=== PATIENT | female | born 1975 | race African-American/Black ===

== ENCOUNTER 2023-02-28 18:20 | Inpatient (IN) | payer MEDICAID, OTHER ==
[~2023-02-28] VITALS: Ht 170.2 cm; Wt 115.7 kg
[~2023-02-28 18:20] MED LIST: A; ALOG1TAB8 MT; AMLO-375 PO; DOCU250C69 PO; FERR325T6 PO; LOSA1TAB40 PO; METF-414 PO
[2023-02-28 19:05] LABS: CLARITY URINE CLOUDY (CLEAR); COLOR URINE YELLOW (YELLOW); GLUCOSE URINE NEGATIVE (NEGATIVE); KETONES URINE NEGATIVE (NEGATIVE); LEUKOCYTE ESTERASE URINE NEGATIVE (NEGATIVE); NITRITE URINE NEGATIVE (NEGATIVE); OCCULT BLOOD URINE 3+ (NEGATIVE); PROTEIN URINE NEGATIVE (NEGATIVE); UROBILINOGEN URINE 0.2 E.U./dL (0.2-1.0)
[2023-02-28 19:08] LABS: RBC URINE TNTC /hpf (0-2); YEAST URINE NONE SEEN
[2023-02-28 19:29] LABS: BACTERIA URINE 1+; SQUAMOUS EPITHELIAL CELL URINE 1+ /lpf (RARE/1+); WBC URINE 0-2 /hpf (0-2)
[2023-02-28 19:36] LABS: BASOPHILS % 1.2 % (0.0-2.0); DIFFERENTIAL COMMENT 0; EOSINOPHILS % 1.6 % (0.0-5.0); HEMATOCRIT. 29.1 % (36.0-48.0); HEMOGLOBIN. 9.1 g/dL (12.0-16.0); LYMPHOCYTES % 32.5 % (20.0-50.0); MEAN CORPUSCULAR HEMOGLOBIN 24.9 pg (28.0-32.0); MEAN CORPUSCULAR HGB CONC 31.3 g/dL (31.0-37.0); MEAN CORPUSCULAR VOLUME 79.6 fL (81.0-99.0); MEAN PLATELET VOLUME 9.4 fl (7.4-10.4); MONOCYTES % 8.8 % (2.0-8.0); NEUTROPHILS % 55.9 % (40.0-76.0); PLATELET 289 x1000/uL (130-400); RED BLOOD CELL COUNT 3.66 mill/uL (4.2-5.4); RED CELL DISTRIBUTION WIDTH 16.4 % (11.6-14.6); WHITE BLOOD COUNT 8.6 x1000/uL (4.5-11.0)
[2023-02-28 19:41] LABS: CHLORIDE 104 mEq/L (98-107); INDEX HEMOLYSI 1 (1-3); INDEX ICTERIC 1 (1-4); INDEX LIPEMIC 1 (1-3); POTASSIUM 3.7 mEq/L (3.5-5.1); SODIUM 136 mEq/L (136-145)
[2023-02-28 19:46] LABS: ALBUMIN 3.5 g/dL (3.4-5.0); CALCIUM 9.1 mg/dL (8.5-10.1); CARBON DIOXIDE 26 mEq/L (21-32); GLUCOSE 149 mg/dL (70-105); UREA NITROGEN BLOOD 10 mg/dL (7-21)
[2023-02-28 19:52] LABS: ALANINE AMINOTRANSFERASE 17 IU/L (13-61); ASPARTATE AMINOTRANSFERASE 9 IU/L (15-37); BILIRUBIN TOTAL 0.1 mg/dL (0.1-1.0); CREATININE 0.5 mg/dL (0.6-1.3); PROTEIN TOTAL 7.8 g/dL (6.0-8.3)
[2023-02-28] MEDS ORDERED: ACETAMINOPHEN 325MG TABLET PO ONE (22:30)
[2023-02-28] MEDS ORDERED: SODIUM CHLORIDE 0.9% 1,000 ML IV ONE (22:30)
[2023-03-01] MEDS ORDERED: MEDR5TAB MT (01:15)
[2023-03-01] MEDS ORDERED: SODIUM CHLORIDE 0.9% 500 ML IV ONE (02:45)
[2023-03-01 04:04] LABS: HEMATOCRIT 26.1 % (36.0-48.0); HEMOGLOBIN 8.1 g/dL (12.0-16.0)
[2023-03-01 10:00] VITALS: BP 130/75; PULSE 106; RESP 18; TEMP 97.1
[2023-03-01] MEDS ORDERED: METF-874 PO (11:02)
[2023-03-01] MEDS ORDERED: ACETAMINOPHEN 325MG TABLET PO PRN (11:30)
[2023-03-01] MEDS ORDERED: ONDANSETRON HCL 4MG/2ML INJ IV PRN (11:30)
[2023-03-01 12:00] VITALS: BP 108/65; PULSE 110; RESP 20; TEMP 97.4
[2023-03-01 13:02] VITALS: BP 129/83; PULSE 106; TEMP 97.7; O2SAT 98
[2023-03-01 16:04] VITALS: BP 129/83; PULSE 106; RESP 18; TEMP 97.7
[2023-03-01 18:36] LABS: HEMOGLOBIN 9.5 g/dL (12.0-16.0)
== END 2023-03-01 21:51 | disposition home or self-care (01) | DRG 532 ==
LOC: ER 18:20 → 7WST 03-01 05:05
PROVIDERS: ADMIT Internal Medicine; ATTEND Internal Medicine
PROC: 30233N1 Transfusion of Nonautologous Red Blood Cells into Peripheral Vein, Percutaneous Approach (ICD-10-PCS; principal; 2023-03-01)
DX: N92.0 Excessive and frequent menstruation with regular cycle (principal); D25.9 Leiomyoma of uterus, unspecified; D64.9 Anemia, unspecified; E11.9 Type 2 diabetes mellitus without complications; E66.9 Obesity, unspecified; I10 Essential (primary) hypertension; N93.8 Other specified abnormal uterine and vaginal bleeding; Z98.891 History of uterine scar from previous surgery; Z68.39 Body mass index [BMI] 39.0-39.9, adult
CPT/HCPCS: 36415; 76830; 76856; 80053; 81003; 83036; 85014; 85018; 85025; 86850; 86900; 86920; 93976; 99285; J7030; J7040; P9016

== ENCOUNTER 2023-03-20 20:51 | Emergency (ER) | payer OTHER ==
[~2023-03-20] VITALS: Ht 175.3 cm; Wt 115.0 kg
[~2023-03-20 20:51] MED LIST changes: -ALOG1TAB8 MT; +MEDR5TAB MT; -METF-414 PO; +METF-874 PO
[2023-03-20 20:52] VITALS: O2SAT 99
[2023-03-20 22:52] LABS: BASOPHILS % 0.5 % (0.0-2.0); EOSINOPHILS % 1.7 % (0.0-5.0); HEMATOCRIT. 27.7 % (36.0-48.0); HEMOGLOBIN. 8.5 g/dL (12.0-16.0); LYMPHOCYTES % 13.1 % (20.0-50.0); MEAN CORPUSCULAR HEMOGLOBIN 25.4 pg (28.0-32.0); MEAN CORPUSCULAR HGB CONC 30.6 g/dL (31.0-37.0); MEAN CORPUSCULAR VOLUME 82.9 fL (81.0-99.0); MEAN PLATELET VOLUME 7.6 fl (7.4-10.4); MONOCYTES % 5.2 % (2.0-8.0); NEUTROPHILS % 79.5 % (40.0-76.0); PLATELET 274 x1000/uL (130-400); RED BLOOD CELL COUNT 3.34 mill/uL (4.2-5.4); RED CELL DISTRIBUTION WIDTH 18.4 % (11.6-14.6); WHITE BLOOD COUNT 9.8 x1000/uL (4.5-11.0)
[2023-03-20 23:01] LABS: CHLORIDE 107 mEq/L (98-107); INDEX HEMOLYSI 1 (1-3); INDEX ICTERIC 1 (1-4); INDEX LIPEMIC 1 (1-3); POTASSIUM 3.7 mEq/L (3.5-5.1); SODIUM 137 mEq/L (136-145)
[2023-03-20 23:16] LABS: HCG SCREEN NEGATIVE
[2023-03-20 23:28] LABS: ALANINE AMINOTRANSFERASE 14 IU/L (13-61); ALBUMIN 3.4 g/dL (3.4-5.0); ASPARTATE AMINOTRANSFERASE 6 IU/L (15-37); BILIRUBIN TOTAL 0.2 mg/dL (0.1-1.0); CALCIUM 8.7 mg/dL (8.5-10.1); CARBON DIOXIDE 25 mEq/L (21-32); CREATININE 0.8 mg/dL (0.6-1.3); GLUCOSE 214 mg/dL (70-105); PROTEIN TOTAL 7.9 g/dL (6.0-8.3); UREA NITROGEN BLOOD 8 mg/dL (7-21)
[2023-03-21] MEDS ORDERED: KETOROLAC 30MG/ML VIAL IV ONE (00:45)
[2023-03-21] MEDS ORDERED: MORPHINE SULFATE 2 MG/ML CPJ (NOT FOR IM USE) IV ONE (00:45)
[2023-03-21 02:02] LABS: PROTHROMBIN TIME 10.6 sec (9.6-11.0)
[2023-03-21] MEDS ORDERED: DOCUSATE SODIUM 100MG CAPSULE PO PRN (08:15)
[2023-03-21] MEDS ORDERED: ACETAMINOPHEN 325MG TABLET PO PRN ×2 (08:15)
[2023-03-21] MEDS ORDERED: CLONIDINE 0.1MG TABLET PO PRN (08:15)
[2023-03-21] MEDS ORDERED: MORPHINE SULFATE 2 MG/ML CPJ (NOT FOR IM USE) IV NR (08:15)
[2023-03-21] MEDS ORDERED: NALOXONE HCL 0.4MG/ML VIAL IV PRN (08:15)
[2023-03-21] MEDS ORDERED: ONDANSETRON HCL 4MG/2ML INJ IV PRN (08:15)
[2023-03-21] MEDS ORDERED: KETOROLAC 30MG/ML VIAL IV NR (08:15)
[2023-03-21] MEDS ORDERED: IPRATROPIUM/ALBUTEROL 0.5-3(2.5)MG/3ML NEB HHN PRN (08:15)
[2023-03-21] MEDS ORDERED: LORAZEPAM 0.5MG TABLET PO PRN (08:15)
[2023-03-21] MEDS ORDERED: HYDROCODONE/ACETAMINOPHEN 5/325MG TABLET PO PRN (08:15)
[2023-03-21 17:20] VITALS: BP 125/77; PULSE 98; RESP 20; TEMP 98.1
== END 2023-03-21 17:30 | disposition home or self-care (01) ==
LOC: ER 20:51 → EDBEDREQ 03-21 02:11 → EDBEDREQTM 03-21 02:11 → CANBEDREQ 03-21 16:59 → ER 03-21 17:30
DX: D64.9 Anemia, unspecified (principal); N93.8 Other specified abnormal uterine and vaginal bleeding; I10 Essential (primary) hypertension; E11.9 Type 2 diabetes mellitus without complications; Z98.890 Other specified postprocedural states
CPT/HCPCS: 80053; 84703; 83690; 85025; 36415 ×2; 99285; 85018; 85610; 86850; 86900; 86901; 86920; 76830; 76856; 96374; J1885; Z7610 ×3; 36430

== ENCOUNTER 2023-07-31 13:58 | Emergency (ER) | payer MEDICAID ==
[~2023-07-31] VITALS: Ht 170.2 cm; Wt 108.0 kg
[~2023-07-31 13:58] MED LIST changes: -A; -AMLO-375 PO; +AMLO10TA80 MT; +ASCO500C15 MT; +FURO-151 MT; -MEDR5TAB MT
[2023-07-31 14:04] VITALS: TEMP 98.4; O2SAT 100
[2023-07-31 14:43] LABS: BASOPHILS % 1.2 % (0.0-2.0); EOSINOPHILS % 1.6 % (0.0-5.0); HEMATOCRIT. 26.4 % (36.0-48.0); HEMOGLOBIN. 8.2 g/dL (12.0-16.0); LYMPHOCYTES % 24.3 % (20.0-50.0); MEAN CORPUSCULAR HEMOGLOBIN 27.4 pg (28.0-32.0); MEAN CORPUSCULAR HGB CONC 31.2 g/dL (31.0-37.0); MEAN CORPUSCULAR VOLUME 87.6 fL (81.0-99.0); MEAN PLATELET VOLUME 8.6 fl (7.4-10.4); MONOCYTES % 6.9 % (2.0-8.0); PLATELET 398 x1000/uL (130-400); RED BLOOD CELL COUNT 3.01 mill/uL (4.2-5.4); RED CELL DISTRIBUTION WIDTH 16.8 % (11.6-14.6); WHITE BLOOD COUNT 9.6 x1000/uL (4.5-11.0)
[2023-07-31 14:57] LABS: ALANINE AMINOTRANSFERASE < 7 IU/L (10-49); ALBUMIN 4.4 g/dL (3.2-4.8); ASPARTATE AMINOTRANSFERASE 11 IU/L (<34); BILIRUBIN TOTAL 0.2 mg/dL (0.1-1.0); CALCIUM 9.1 mg/dL (8.7-10.4); CARBON DIOXIDE 26 mEq/L (21-32); CHLORIDE 106 mEq/L (98-107); CREATININE 0.7 mg/dL (0.6-1.0); GLUCOSE 147 mg/dL (70-105); PROTEIN TOTAL 7.4 g/dL (6.0-8.3); SODIUM 139 mEq/L (136-145); UREA NITROGEN BLOOD 11 mg/dL (9-23)
[2023-07-31 18:46] VITALS: BP 127/82; PULSE 98; RESP 17
== END 2023-07-31 18:48 | disposition home or self-care (01) ==
LOC: ER 13:58
DX: N93.8 Other specified abnormal uterine and vaginal bleeding (principal); E11.9 Type 2 diabetes mellitus without complications; I10 Essential (primary) hypertension; Z88.8 Allergy status to other drugs, medicaments and biological substances; Z79.899 Other long term (current) drug therapy
CPT/HCPCS: 36415; 80053; 85025; 86850; 86900; 99283